=== PATIENT | male | born 1975 ===

== ENCOUNTER 2022-01-16 09:35 | Emergency (ER) | payer MEDICAID ==
[2022-01-16] MEDS ORDERED: Bacitracin Oint 1 GM U/D Packet TOP ONE (09:55)
[2022-01-16 10:47] LABS: ANION GAP 11.8 mEq/L (7-13); CHLORIDE,CL 106 mmol/L (98-107); ESTIMATED GFR 88 mL/min (>=60); SODIUM,NA 142 mmol/L (136-145)
== END 2022-01-16 10:28 | disposition home or self-care (01) ==
LOC: DL.ED 09:35
DX: L03.313 Cellulitis of chest wall (principal); F17.210 Nicotine dependence, cigarettes, uncomplicated; Z86.16 Personal history of COVID-19
CPT/HCPCS: 36415; 80053; 83605; 84145; 85025; 86140; 87070; 87077; 87186; 99283; 99284

== ENCOUNTER 2022-09-22 13:28 | Emergency (ER) | payer MEDICAID ==
[2022-09-22] MEDS ORDERED: Sodium Chloride 0.9% 10 ML Syringe FLUSH PRN (13:34)
[2022-09-22 14:29] LABS: ANION GAP 11.7 mEq/L (7-13); CHLORIDE,CL 106 mmol/L (98-107); SODIUM,NA 143 mmol/L (136-145)
[2022-09-22 14:30] LABS: ESTIMATED GFR 80 mL/min (>=60)
== END 2022-09-22 16:50 | disposition home or self-care (01) ==
LOC: DL.ED 13:28
DX: R07.89 Other chest pain (principal); Z86.16 Personal history of COVID-19
CPT/HCPCS: 36415; 71045; 80053; 82150; 83605; 83690; 83735; 84443; 84484; 85025; 85610; 86140; 93005; 93010; 99284; 99285

== ENCOUNTER 2023-01-29 09:31 | Emergency (ER) | payer MEDICAID ==
[2023-01-29] MEDS ORDERED: Sodium Chloride 0.9% 10 ML Syringe FLUSH PRN (09:45)
[2023-01-29] MEDS ORDERED: Famotidine 20 MG/2 ML SDV IVPUSH ONE (09:46)
[2023-01-29] MEDS ORDERED: fentaNYL 100 MCG/2 ML SDV IVPUSH ONE (09:47)
[2023-01-29] MEDS ORDERED: LORazepam 2 MG/ML SDV IVPUSH PRN (09:48)
[2023-01-29] MEDS ORDERED: chlordiazePOXIDE 25 MG Cap PO ONE (09:49)
[2023-01-29] MEDS ORDERED: MVI, Adult with Vitamin K 10 ML, Folic Acid 1 MG, Thiamine 100 MG in Lactated Ringers 1... IV ONE ×4 (09:51)
[2023-01-29] MEDS ORDERED: Ondansetron 4 MG/2 ML SDV IVPUSH ONE (09:53)
[2023-01-29 09:58] LABS: BASOPHILS PERCENT AUTO 0.5 % (0.0-1.0); EOSINOPHILS PERCENT AUTO 2.3 % (1.0-3.0); HEMATOCRIT 45.6 % (40.0-54.0); LYMPHOCYTES PERCENT AUTO 15.5 % (20.5-50.1); MEAN CORPUSCULAR HEMOGLOBIN 31.6 pg (27.0-34.0); MEAN CORPUSCULAR HGB CONC 35.1 g/dL (33.0-35.0); MEAN CORPUSCULAR VOLUME 90.1 fL (80-100); MONOCYTES PERCENT AUTO 11.3 % (2-8); NEUTROPHILS PERCENT AUTO 70.4 % (42.2-75.2); PLATELET COUNT,PLT 207 10^3/uL (150-450); RED BLOOD CELL COUNT 5.06 10^6/uL (4.6-6.2); WHITE BLOOD CELL COUNT,WBC 6.5 10^3/uL (5.0-10.0)
[2023-01-29 10:19] LABS: A/G RATIO 0.9; ALANINE AMINOTRANSFERASE,ALT 133 U/L (16-63); ALKALINE PHOSPHATASE 105 U/L (46-116); ANION GAP 18.5 mEq/L (7-13); ASPARTATE AMNIOTRANSFERASE,AST 127 U/L (15-37); BILIRUBIN TOTAL 1.2 mg/dL (0.2-1.0); BLOOD UREA NITROGEN,BUN 11 mg/dL (7-18); BUN/CREATININE RATIO 9.3 (No establ ref range); CALCIUM 9.2 mg/dL (8.5-10.1); CARBON DIOXIDE,CO2 23 mmol/L (21-32); CHLORIDE,CL 98 mmol/L (98-107); CREATININE 1.18 mg/dL (0.70-1.30); EST CRCL DRUG DOSING (CG) 87.46 mL/min; GLUCOSE RANDOM 137 mg/dL (70-99); LIPASE 110 U/L (73-393); MAGNESIUM 1.6 mg/dL (1.8-2.4); POTASSIUM,K 3.5 mmol/L (3.5-5.1); PROTEIN TOTAL,TP 8.4 g/dL (6.4-8.2); SODIUM,NA 136 mmol/L (136-145)
[2023-01-29 10:20] LABS: ESTIMATED GFR 77 mL/min (>=60); ETHANOL BLOOD MEDICAL < 3 mg/dL (0)
[2023-01-29] MEDS ORDERED: Magnesium Oxide 400 MG Tab PO ONE (10:40)
[2023-01-29] MEDS ORDERED: cloNIDine 0.1 MG Tab PO ONE (10:45)
== END 2023-01-29 11:45 | disposition home or self-care (01) ==
LOC: DL.ED 09:31
DX: K29.20 Alcoholic gastritis without bleeding (principal); F10.930 Alcohol use, unspecified with withdrawal, uncomplicated; Z86.16 Personal history of COVID-19; Y90.0 Blood alcohol level of less than 20 mg/100 ml
CPT/HCPCS: 36415; 80053; 80307; 83690; 83735; 85025; 96365; 96375; 99283; 99284; A9270; J2405; J3010; J3411; J3490; J7120

== ENCOUNTER 2024-12-21 06:34 | Emergency (ER) | payer MEDICAID ==
[2024-12-21] MEDS ORDERED: Sodium Chloride 0.9% 10 ML Syringe FLUSH PRN (07:09)
[2024-12-21] MEDS: Ondansetron 4 MG/2 ML SDV IVPUSH ONE (07:16)
[2024-12-21 07:20] LABS: BASOPHILS PERCENT AUTO 0.6 % (0.0-1.0); EOSINOPHILS PERCENT AUTO 0.6 % (1.0-3.0); LYMPHOCYTES PERCENT AUTO 28.5 % (20.5-50.1); MONOCYTES PERCENT AUTO 10.3 % (2-8); NEUTROPHILS PERCENT AUTO 60.0 % (42.2-75.2); PLATELET COUNT,PLT 240 10^3/uL (150-450); RED BLOOD CELL COUNT 5.44 10^6/uL (4.6-6.2); WHITE BLOOD CELL COUNT,WBC 6.2 10^3/uL (5.0-10.0)
[2024-12-21 07:40] LABS: A/G RATIO 0.9; ALANINE AMINOTRANSFERASE,ALT 88.0 U/L (16-63); ASPARTATE AMNIOTRANSFERASE,AST 93.0 U/L (15-37); BILIRUBIN TOTAL 1.8 mg/dL (0.2-1.0); BLOOD UREA NITROGEN,BUN 13.0 mg/dL (7-18); CARBON DIOXIDE,CO2 22.0 mmol/L (21-32); CHLORIDE,CL 102.0 mmol/L (98-107); CREATININE 1.44 mg/dL (0.70-1.30); EST CRCL DRUG DOSING (CG) 70.13 mL/min; ESTIMATED GFR 60.0 mL/min (>=60); ETHANOL BLOOD MEDICAL 9.0 mg/dL (0); GLUCOSE RANDOM 143.0 mg/dL (70-99); POTASSIUM,K 4.0 mmol/L (3.5-5.1); PROTEIN TOTAL,TP 8.4 g/dL (6.4-8.2); SODIUM,NA 138.0 mmol/L (136-145)
[2024-12-21] MEDS: Lactated Ringers 1,000 ML IV SCH (07:55)
[2024-12-21] MEDS: Iopamidol 612 MG/ML 100 ML Bottle IVPUSH ONE (08:10)
== END 2024-12-21 10:30 | disposition home or self-care (01) ==
LOC: DL.ED 06:34
DX: R11.2 Nausea with vomiting, unspecified (principal); F12.10 Cannabis abuse, uncomplicated; Z86.16 Personal history of COVID-19
CPT/HCPCS: 36415; 74177; 80053; 80307; 83690; 83735; 85025; 93005; 93010; 96361; 96372; 96374; 99284; J1630; J2405; J7120; Q9967